=== PATIENT | male | born 1950 | race Caucasian/White ===

== ENCOUNTER → 2017-06-20 | Outpatient (CLI) | payer MEDICARE ==
[2017-06-20 19:15] LABS: ALT 17 U/L (21-72); AST 20 U/L (17-59); Albumin 3.9 g/dL (3.5-5.0); Alkaline Phosphatase 109 U/L (38-126); Anion Gap 13 mmol/L; Basophils # (A) 0.1 k/uL (0-0.2); Basophils % (A) 1 %; Blood Urea Nitrogen 13 mg/dL (9-20); Calcium 9.4 mg/dL (8.4-10.2); Carbon Dioxide 21 mmol/L (22-30); Chloride 107 mmol/L (98-107); Cholesterol 211 mg/dL (<200); Eosinophils # (A) 0.7 k/uL (0-0.7); Eosinophils % (A) 13 %; Glucose 94 mg/dL (74-99); HCT 51.8 % (39.0-53.0); HDL Cholesterol 47 mg/dL (40-60); HGB 16.3 gm/dL (13.0-17.5); LDL Cholesterol,Calculated 131 mg/dL (0-99); Lymphocytes # (A) 1.2 k/uL (1.0-4.8); Lymphocytes % (A) 22 %; MCH 29.7 pg (25.0-35.0); MCHC 31.6 g/dL (31.0-37.0); Mean Platelet Volume 8.2; Monocytes # (A) 0.5 k/uL (0-1.0); Monocytes % (A) 9 %; Neutrophils # (A) 2.9 k/uL (1.3-7.7); Neutrophils % (A) 53 %; Platelet Count 299 k/uL (150-450); Potassium 4.5 mmol/L (3.5-5.1); RBC 5.51 m/uL (4.30-5.90); RDW 14.6 % (11.5-15.5); Sodium 141 mmol/L (137-145); Total Bilirubin 0.4 mg/dL (0.2-1.3); Total Protein 7.2 g/dL (6.3-8.2); Triglycerides 166 mg/dL (<150); WBC 5.4 k/uL (3.8-10.6)
[2017-06-20 19:28] LABS: T4, Free (Free Thyroxine) 1.12 ng/dL (0.78-2.19)
[2017-06-20 19:41] LABS: PSA Annual Screen 2.22 ng/mL (0.00-4.00)
== END | disposition home or self-care (01) ==
LOC: MMGSC 10:58
PROVIDERS: ATTEND Family Medicine
DX: Z00.00 Encounter for general adult medical examination without abnormal findings (principal); Z12.5 Encounter for screening for malignant neoplasm of prostate
CPT/HCPCS: 84439; 80053; 80061; 84443; 85025; 36415; G0103